=== PATIENT | male | born 1980 | race Caucasian/White ===

== ENCOUNTER → 2020-01-14 | Outpatient (CLI) | payer OTHER ==
--- NOTE | 2020-01-16 14:14 | SLEEPCENT ---
DATE OF PROCEDURE: 01/14/2020 ORDERED BY: Sandie Jordan NP Nocturnal polysomnography was performed for evaluation of sleep physiology in this patient with a history of dyssomnia, snoring, and irregular breathing in sleep. 7 hours and 10 minutes of data were reviewed. There were 372 minutes of sleep identified. Sleep latency was mildly prolonged at 17.5 minutes. Rapid eye movement (REM) latency more so prolonged at 243 minutes. Sleep architecture initially showed fragmentation. There was 1 REM cycle. Overall sleep efficiency was 88%. REM time was diminished. The electrocardiogram showed a sinus rhythm with an average heart rate of 54 beats per minute. Rate ranged 42-78. Electroencephalogram (EEG) showed coarsening in background consistent with medication effect. No focal events were identified and there were normal waveforms for awake and sleep stages. There were 32 respiratory events identified of 10 seconds in duration or greater for an apnea-hypopnea index of 5.2. The events were primarily obstructive hypopneas. They were not exclusive to sleep stage nor body posture. Arousals from respiratory events were seen 4.5 times per hour and oxygen saturations remained 90% plus throughout study. There was some activity noted in the limb electromyogram (EMG) leads but limb movement arousal index was 1.3. Snoring was noted over most of the study. IMPRESSION: 1. Mild obstructive sleep apnea syndrome (G47.33). Apnea-hypopnea index 5.2. 2. Alpha intrusion and REM delay possibly medication effect. RECOMMENDATIONS: Based on the above findings, if change in medication was an option this may improve sleep architecture. However, given the occurrence of obstructive respiratory events that were not postural likely the patient will require return to the sleep disorder center for pressure therapy.
== END ==
LOC: M SLEEP 20:00
PROVIDERS: ATTEND Nurse Practitioner Adult Health
DX: G47.33 Obstructive sleep apnea (adult) (pediatric) (principal)

== ENCOUNTER → 2020-01-20 | Outpatient (CLI) | payer OTHER ==
--- NOTE | 2020-03-12 13:38 | SLEEPHOME ---
DATE: 01/20/2020 ORDERED BY: Sandie Jordan NP Nocturnal polysomnography was performed for the titration of pressure therapy in this patient with obstructive sleep apnea syndrome, apnea-hypopnea index of 5.2. For testing, the patient was fit with a ResMed AirFit F30 full-face mask of medium size, 4 cm of water pressure applied to the circuit, and the lights were extinguished. There was 7 hours and 31 minutes of data reviewed. There was 394.5 minutes of sleep identified. Sleep latency was prolonged at 28 minutes. REM latency was prolonged at 214 minutes. Sleep architecture was fair with one long REM cycle. Overall sleep efficiency was 88.7%. Electrocardiogram showed a sinus rhythm with an average heart rate of 54 beats per minute. EEG showed normal waveforms for wake and sleep. Respiratory events were best palliated with CPAP at a pressure of 11 with some activity in the limb EMG leads. Limb movement arousal index was 3.8. IMPRESSIONS: Obstructive sleep apnea syndrome (G47.33). RECOMMENDATIONS: Nightly use of pressure therapy, 11 cm of water. MTDD
== END ==
LOC: M SLEEP 20:00
PROVIDERS: ATTEND Nurse Practitioner Adult Health
DX: G47.33 Obstructive sleep apnea (adult) (pediatric) (principal)